=== PATIENT | female | born 1990 | race African-American/Black ===

== ENCOUNTER 2018-04-02 06:32 | Emergency (ER) | payer MEDICAID ==
[~2018-04-02] VITALS: Ht 170.2 cm; Wt 104.0 kg
[~2018-04-02 06:32] MED LIST: PNV1TABL50
[2018-04-02] MEDS ORDERED: MORPHINE SULFATE 4 MG/ML CPJ (NOT FOR IM USE) IV STA (06:49)
[2018-04-02] MEDS ORDERED: ONDANSETRON HCL 4MG/2ML VIAL IV STA (06:49)
[2018-04-02] MEDS ORDERED: SODIUM CHLORIDE 0.9% 1,000 ML IV ONE (06:49)
[2018-04-02 07:39] VITALS: BP 131/69
== END 2018-04-02 08:35 | disposition short-term general hospital (02) ==
LOC: ER 06:32
DX: S01.112A Laceration without foreign body of left eyelid and periocular area, initial encounter (principal); F17.200 Nicotine dependence, unspecified, uncomplicated; F12.10 Cannabis abuse, uncomplicated; Z79.899 Other long term (current) drug therapy; Y09 Assault by unspecified means; Y93.89 Activity, other specified; Y92.89 Other specified places as the place of occurrence of the external cause; Y99.8 Other external cause status
CPT/HCPCS: 70450; 70486; 72125; 82962; 96374; 96375; 99291; J2270; J2405; J7030; Z7610

== ENCOUNTER 2019-01-19 17:55 | Emergency (ER) | payer MEDICAID ==
[~2019-01-19] VITALS: Ht 172.7 cm; Wt 100.0 kg
[2019-01-19 18:03] VITALS: BP 125/64
== END 2019-01-19 20:33 | disposition home or self-care (01) ==
LOC: ER 17:55
DX: H00.015 Hordeolum externum left lower eyelid (principal); H10.9 Unspecified conjunctivitis; H54.62 Unqualified visual loss, left eye, normal vision right eye; F12.90 Cannabis use, unspecified, uncomplicated; F17.210 Nicotine dependence, cigarettes, uncomplicated
CPT/HCPCS: 99283